=== PATIENT | female | born 1985 | race Caucasian/White ===

== ENCOUNTER 2016-09-07 14:01 | Emergency (ER) | payer MEDICARE ==
[~2016-09-07 14:01] MED LIST: ABILIFY PO; ABILIFY5 MG PO; AMOXICILLIN500 M1 PO; AMOXICILLIN875 MG PO; ANSAID100 MG PO; BACTRIM DS TABL1 TA1 PO; BENZONATATE PO; BUSPAR15 M2 PO; CLONAZEPAM0.5 MG PO; COLACE PO; CVS PHARMACY; CYMBALTA PO; DICLOFENAC PO; DICYCLOMINE HCL20 MG PO; DOXYCYCLINE PO; FIORECET PO; FLAGYL PO; FLEXERIL10 MG PO; FLONASE16 GM; GABAPENTIN300 MG PO; IBUPROFEN PO; KLONOPIN; KLONOPIN PO; KLONOPIN0.5 MG PO; KLONOPIN1 MG PO; LAMICTAL PO; LAMICTAL25 MG PO; LEXAPRO PO; LITHIUM PO; MOTRIN600 MG PO; NAPROSYN500 MG PO; PATIENT'S PHARMACY; PEN-VEE K PO; PHENERGAN PO; PRILOSEC PO; PRILOSEC20 MG PO; PROZAC PO; PROZAC40 M1 PO; PROZAC40 MG PO; RISPERDAL2 MG PO; RISPERIDONE PO; TEGRETOL PO; TEGRETOL XR PO; TRILEPTAL; TRILEPTAL PO; TRILEPTAL300 MG PO; TYLENOL #3 PO; VICODIN 5/1 TAB 5/50 PO; VICODIN 5/500 T1 TAB PO; VISTARIL50 MG PO; VOLTAREN75 MG PO; WELLBUTRIN; WELLBUTRIN SR200 MG PO; ZOFRAN ODT4 MG PO; [UNRECOGNIZED DRUG - OTHER]; [UNRECOGNIZED DRUG - OTHER]
[2016-10-13] MEDS ORDERED: EFFEXOR75 M1 PO (16:40)
== END 2016-09-07 14:15 | disposition left against medical advice (07) ==
LOC: SED 14:01
DX: Z53.21 Procedure and treatment not carried out due to patient leaving prior to being seen by health care provider (principal); Z88.6 Allergy status to analgesic agent; Z79.899 Other long term (current) drug therapy

== ENCOUNTER 2016-10-13 17:44 | Emergency (ER) | payer MEDICARE ==
[~2016-10-13 17:44] MED LIST changes: +EFFEXOR75 M1 PO
[2016-10-13 17:52] LABS: URINE SOURCE CLEAN CATCH
[2016-10-13 17:55] LABS: URINE APPEARANCE CLEAR; URINE BILIRUBIN NEG (NEG); URINE BLOOD TRACE-INTACT (NEG); URINE COLOR YELLOW; URINE GLUCOSE NEG (NORM); URINE KETONE NEG (NEG); URINE LEUKOCYTE ESTERASE NEG (NEG); URINE NITRATE NEG (NEG); URINE PROTEIN NEG (NEG); URINE SPECIFIC GRAVITY 1.015 (1.003-1.035)
[2016-10-13 17:56] LABS: MICRO INDICATED? YES
[2016-10-13 18:05] LABS: CULTURE INDICATED? YES; URINE BACTERIA 1+ (NEG); URINE SQUAMOUS EPITHELIAL CELL FEW /[HPF]; URINE WBC 0-2 /[HPF] (0-5)
== END 2016-10-13 18:29 | disposition home or self-care (01) ==
LOC: SED 17:44
PROVIDERS: Physician Assistant
DX: R10.9 Unspecified abdominal pain (principal); G40.909 Epilepsy, unspecified, not intractable, without status epilepticus; F31.9 Bipolar disorder, unspecified; F17.210 Nicotine dependence, cigarettes, uncomplicated
CPT/HCPCS: 81003; 84703; 87086; 99284

== ENCOUNTER 2016-11-10 23:06 | Emergency (ER) | payer MEDICARE ==
--- NOTE | ~2016-11-10 | CR72 ---
[facility] A Service of [facility] RADIOLOGY TEXT RESULTS PATIENT: MILAN SHERMAN LOCATION: [facility] : 83 UNIT #: [id number] AGE: [address]: Danuta Simental MD SEX: F ORDER DR: [id number] [facility] [address] [place], [place] [address] [id number] E MR#: [id number] Acc #: [id number] NAME: MILAN SHERMAN : 1985 SEX: F STUDY DATE/TIME: 11/10/2016 23:40 UNIT: [facility] ROOM: STUDY DESCRIPTION: CR Chest Single View Portable Attending Physician: Danuta Simental M.D. Ordering Physician: Danyel Pablo M.D. Primary Care Physician: Javi Newby M.D. MEDICAL IMAGING REPORT This report is preliminary unless electronic signature is present EXAM Single view chest INDICATION Altered mental status. Shortness of air. Seizure. FINDINGS Single portable AP view of the chest compared to 03/31/2009. Heart mediastinal contour is normal. Lungs are clear. IMPRESSION Negative chest radiograph. Dictated by... Ignacio Dias M.D. THIS IS AN ELECTRONICALLY VERIFIED REPORT Ignacio Dias M.D. at 11/11/2016 4:03 AM ANISHA/jacinda TD: 11/11/2016 03:40 JOB #: [id number] MEDICAL IMAGING REPORT Page 1 of 1 COPY
[2016-11-10 23:42] LABS: URINE SOURCE CATH
[2016-11-10 23:46] LABS: URINE APPEARANCE CLEAR; URINE BILIRUBIN NEG (NEG); URINE BLOOD TRACE (NEG); URINE COLOR YELLOW; URINE GLUCOSE NEG (NEG); URINE KETONE NEG (NEG); URINE LEUKOCYTE ESTERASE NEG (NEG); URINE NITRATE NEG (NEG); URINE PH 5.5 (5-8); URINE PROTEIN NEG (NEG); URINE SPECIFIC GRAVITY 1.004 (1.003-1.035); URINE UROBILINOGEN 0.2 MG/DL (NEG)
[2016-11-10 23:48] LABS: BASOPHIL# 0.1 X10e3 (0-0.3); BASOPHIL% 1.1 % (0-2.5); EOSINOPHIL# 0.1 X10e3 (0-0.7); EOSINOPHIL% 0.8 % (0.0-7.0); HEMATOCRIT 41.7 % (35.0-45.0); HEMOGLOBIN 13.6 gm/dL (12.0-16.0); LYMPHOCYTE# 2.7 X10e3 (1.0-3.5); LYMPHOCYTE% 26.9 % (17.0-45.0); MEAN CELL VOLUME 93.5 FL (83-96); MEAN CORPUSCULAR HEMOGLOBIN 30.6 PG (28-34); MEAN CORPUSCULAR HGB CONC 32.7 g/dL (30-36); MEAN PLATELET VOLUME 7.8 FL (6.5-11.5); MONOCYTE# 0.6 X10e3 (0-1.0); MONOCYTE% 5.9 % (3.0-12.0); NEUTROPHIL# 6.6 X10e3 (1.5-7.1); NEUTROPHIL% 65.3 % (40-75); PLATELET COUNT 262 X10e3 (140-420); RED BLOOD COUNT 4.46 X10e (3.90-5.30); RED CELL DISTRIBUTION WIDTH 13.3 % (11.0-15.5)
[2016-11-10 23:49] LABS: DIFF IND NO
[2016-11-10 23:51] LABS: CULTURE INDICATED? NO
[2016-11-11 00:05] LABS: AMPHETAMINE NEG (NEG); BARBITURATES NEG (NEG); BENZODIAZEPINES NEG (NEG); COCAINE NEG (NEG); MARIJUANA NEG (NEG); OPIATES NEG (NEG); TRICYCLIC ANTIDEPRESSANTS NEG (NEG); U METHADONE NEG (NEG)
[2016-11-11 00:14] LABS: ALBUMIN SERUM 4.5 g/dL (3.5-5.0); ALCOHOL BLOOD 111 mg/dL (0); ALKALINE PHOSPHATASE 67 U/L (32-92); ALT (SGPT) 22 U/L (10-40); AST (SGOT) 29 U/L (10-42); BILIRUBIN,TOTAL 0.3 mg/dL (0.2-2.0); BLOOD UREA NITROGEN 7 mg/dL (9-23); BUN/CREATININE RATIO 7.77; CALCIUM SERUM 8.8 mg/dL (8.4-10.2); CARBON DIOXIDE 22 mmol/L (22-31); CHLORIDE 106 mmol/L (100-111); CREATININE SERUM 0.9 mg/dL (0.6-1.4); GLOM FILT RATE Estimated 84.7 mL/min (>60); GLUCOSE FASTING 112 mg/dL (70-110); POTASSIUM 3.3 mmol/L (3.5-5.1); PROTEIN TOTAL SERUM 7.6 g/dL (6.0-8.3); SALICYLATE <4.0 mg/dL; SODIUM 137 mmol/L (135-145)
[2016-11-11 00:21] LABS: ACETAMINOPHEN <10 ug/mL; BILIRUBIN, DIRECT 0.1 mg/dL (0.0-0.2); BILIRUBIN,INDIRECT 0.2 mg/dL (0.0-0.9)
== END 2016-11-11 05:26 | disposition home or self-care (01) ==
LOC: CED 23:06
PROVIDERS: Emergency Medicine
DX: G40.909 Epilepsy, unspecified, not intractable, without status epilepticus (principal); F10.129 Alcohol abuse with intoxication, unspecified; F31.9 Bipolar disorder, unspecified; Z88.6 Allergy status to analgesic agent; Z88.8 Allergy status to other drugs, medicaments and biological substances; Z79.899 Other long term (current) drug therapy
CPT/HCPCS: 36415; 71010; 80048; 80076; 80307; 81003; 84703; 85025; 96361; 96372; 96374; 99284; G0480; J3486